=== PATIENT | female | born 1985 | race American Indian/Alaskan Native ===

== ENCOUNTER 2017-01-30 03:41 | Emergency (ER) | payer SELFPAY ==
[2017-01-30 06:07] LABS: Bacteria,Urine 1+ /HPF (Negative); Bilirubin,Urine NEG (Negative); Blood,Urine NEG (Negative); Ketones,Urine TR mg/dL (Negative); Leukocyte Esterase,Urine NEG (Negative); Mucus,Urine 3+ /HPF; Nitrite,Urine NEG (Negative); Urobilinogen,Urine < 2.0 mg/dL (<2.0)
--- NOTE | 2017-01-30 07:10 | Emergency Department Report ---
ED Female HPI - General Chief complaint: Abdominal Pain Stated complaint: ABD PAIN Time Seen by Provider: 01/30/17 07:09 Source: patient Mode of arrival: Ambulatory Limitations: No Limitations - History of Present Illness Initial comments: This is a 31-year-old female. She is previously unknown to me. She is 5. She presents to the ER complaining of pain with defecation, brown stool mixed with red blood, and abdominal cramping. She did not know that she was . There is no chest pain or shortness of breath. There are no irritative or obstructive urinary symptoms. Rectal pain increases with defecation. Abdominal cramping has no exacerbating or relieving factors. MD Complaint: vaginal bleeding -: Gradual Location: suprapubic Severity: mild Quality: cramping Consistency: intermittent Improves with: other (rest) Worsens with: other (defecation) Are you Now?: Yes Associated Symptoms: vaginal bleeding. denies: dysuria - Related Data Sexually active: Yes Previous Rx's Medication Instructions Recorded Last Taken Type Doxylamine/Pyridoxine HCl 1 each PO QHS PRN #30 tablet. 01/30/17 Unknown Rx [Linh Freitas 10-10 mg Tablet] Vit W-Ca,Fe,FA(<1 mg) 1 each PO QDAY #30 tablet 01/30/17 Unknown Rx [ Vitamins] Allergies Allergy/AdvReac Type Severity Reaction Status Date / Time Penicillins Allergy Swelling Verified 01/30/17 04:02 ED Review of Systems ROS: Stated complaint: ABD PAIN Other details as noted in HPI ED Past Medical Hx - Past Medical History Previous Medical History?: No - Surgical History Past Surgical History?: Yes Additional Surgical History: C SECTION X2 - Social History Smoking Status: Never Smoker Substance Use Type: Alcohol - Medications Home Medications: Home Medications Medication Instructions Recorded Confirmed Last Taken Type Doxylamine/Pyridoxine HCl 1 each PO QHS PRN #30 tablet. 01/30/17 Unknown Rx [Linh Freitas 10-10 mg Tablet] Vit W-Ca,Fe,FA(<1 mg) 1 each PO QDAY #30 tablet 01/30/17 Unknown Rx [ Vitamins] ED Physical Exam - General Limitations: No Limitations General appearance: alert, in no apparent distress - Head Head exam: Present: atraumatic, normocephalic - Eye Eye exam: Present: normal appearance, EOMI. Absent: nystagmus - ENT ENT exam: Present: normal exam, normal orophraynx, mucous membranes moist, normal external ear exam - Neck Neck exam: Present: normal inspection, full ROM. Absent: tenderness, meningismus - Respiratory Respiratory exam: Present: normal lung sounds bilaterally. Absent: respiratory distress, wheezes, rales, rhonchi, stridor, chest wall tenderness, accessory muscle use, decreased breath sounds, prolonged expiratory - Cardiovascular Cardiovascular Exam: Present: regular rate, normal rhythm, normal heart sounds. Absent: bradycardia, tachycardia, irregular rhythm, systolic murmur, diastolic murmur, rubs, gallop - GI/Abdominal GI/Abdominal exam: Present: soft, normal bowel sounds. Absent: distended, tenderness, guarding, rebound, rigid, pulsatile mass - Rectal Rectal exam: Present: normal inspection, normal rectal tone, heme (-) stool, other (escorted by ROBERTO Pagan) - External exam: Present: normal external exam Speculum exam: Present: normal speculum exam. Absent: vaginal bleeding Bi-manual exam: Present: normal bi-manual exam, other (escorted by ROBERTO Pagan) - Extremities Exam Extremities exam: Present: normal inspection, full ROM, normal capillary refill. Absent: tenderness, pedal edema, joint swelling, calf tenderness - Back Exam Back exam: Present: normal inspection, full ROM. Absent: tenderness, CVA tenderness (R), CVA tenderness (L), muscle spasm, paraspinal tenderness, vertebral tenderness - Neurological Exam Neurological exam: Present: alert, oriented X3, normal gait, other (Extraocular movements intact. Tongue midline. No facial droop. Facial sensation intact to light touch in the V1, V2, V3 distribution bilaterally. 5 and 5 strength in 4 extremities.. Sensation is intact to light touch in 4 extremities.). Absent : motor sensory deficit - Psychiatric Psychiatric exam: Present: normal affect, normal mood - Skin Skin exam: Present: warm, dry, intact, normal color. Absent: rash ED Course Vital Signs 01/30/17 01/30/17 04:02 06:35 Temperature 98.5 F Pulse Rate 69 Respiratory 18 16 Rate Blood Pressure 108/58 O2 Sat by Pulse 100 99 Oximetry - Reevaluation(s) Reevaluation #1: 01/30/17 10:40 differential diagnosis: Anal fissure, constipation, , urinary tract infection Assessment and plan: 31-year-old female with incidental abdominal pain, and probable anal fissure at 12:00. Ultrasound suggests intrauterine . She is afebrile with reassuring vital signs. Her abdominal exam is benign. Her gynecologic exam is benign. Her rectal exam is benign. The patient has been observed in the ER for a prolonged period of time without decompensation. She will be discharged at this time. Return precautions were extensively reviewed. She is given a printout of her ultrasound report to follow-up with an [facility] doctor. ED Medical Decision Making - Lab Data Result diagrams: 01/30/17 07:55 Vital Signs 01/30/17 01/30/17 04:02 06:35 Temperature 98.5 F Pulse Rate 69 Respiratory 18 16 Rate Blood Pressure 108/58 O2 Sat by Pulse 100 99 Oximetry Lab Results 01/30/17 01/30/17 01/30/17 Range/Units 05:25 07:55 07:55 WBC 12.4 H (4.5-11.0) K/mm3 RBC 3.94 (3.65-5.03) M/mm3 Hgb 11.8 (10.1-14.3) gm/dl Hct 35.6 (30.3-42.9) % MCV 91 (79-97) fl MCH 30 (28-32) pg MCHC 33 (30-34) % RDW 13.3 (13.2-15.2) % Plt Count 223 (140-440) K/mm3 HCG, Quant 6491 H (0-4) mIU/mL Urine Color Yellow (Yellow) Urine Turbidity Clear (Clear) Urine pH 5.0 (5.0-7.0) Ur Specific [place] 1.028 (1.003-1.030) Urine Protein 30 mg/dl (Negative) mg/dL Urine Glucose (UA) Neg (Negative) mg/dL Urine Ketones Tr (Negative) mg/dL Urine Blood Neg (Negative) Urine Nitrite Neg (Negative) Ur Reducing Substances Not Reportable Urine Bilirubin Neg (Negative) Urine Ictotest Not Reportable Urine Urobilinogen < 2.0 (<2.0) mg/dL Ur Leukocyte Esterase Neg (Negative) Urine WBC (Auto) 1.0 (0.0-6.0) /HPF Urine RBC (Auto) 4.0 (0.0-6.0) /HPF U Epithel Cells (Auto) 11.0 (0-13.0) /HPF Urine Bacteria (Auto) 1+ (Negative) /HPF Urine Mucus 3+ /HPF Urine HCG, Qual Positive A (Negative) Blood Type Antibody Screen 01/30/17 Range/Units 07:55 WBC (4.5-11.0) K/mm3 RBC (3.65-5.03) M/mm3 Hgb (10.1-14.3) gm/dl Hct (30.3-42.9) % MCV (79-97) fl MCH (28-32) pg MCHC (30-34) % RDW (13.2-15.2) % Plt Count (140-440) K/mm3 HCG, Quant (0-4) mIU/mL Urine Color (Yellow) Urine Turbidity (Clear) Urine pH (5.0-7.0) Ur Specific [place] (1.003-1.030) Urine Protein (Negative) mg/dL Urine Glucose (UA) (Negative) mg/dL Urine Ketones (Negative) mg/dL Urine Blood (Negative) Urine Nitrite (Negative) Ur Reducing Substances Urine Bilirubin (Negative) Urine Ictotest Urine Urobilinogen (<2.0) mg/dL Ur Leukocyte Esterase (Negative) Urine WBC (Auto) (0.0-6.0) /HPF Urine RBC (Auto) (0.0-6.0) /HPF U Epithel Cells (Auto) (0-13.0) /HPF Urine Bacteria (Auto) (Negative) /HPF Urine Mucus /HPF Urine HCG, Qual (Negative) Blood Type O POSITIVE Antibody Screen TNR - Radiology Data Radiology results: report reviewed, image reviewed Obstetrics ultrasound: Sonographic findings may represent an intrauterine gestational sac/early at 5 weeks and 6 days. Viability not confirmed. Ovarian cyst noted. minimal free pelvic fluid noted. - Differential Diagnosis , uti, anal fissure Critical care attestation.: If time is entered above; I have spent that time in minutes in the direct care of this critically ill patient, excluding procedure time. ED Disposition Clinical Impression: Disposition: DISCHARGED TO HOME OR SELFCARE Is pt being admited?: No Does the pt Need Aspirin: No Condition: Stable Instructions: (ED), Anal Fissure (ED) Additional Instructions: Drink plenty of water. Take the vitamins as directed. Follow up with any of the listed [facility] groups within the next week to initiate care. Rest and avoid heavy lifting. Do not engage in sexual activity until an [facility] doctor closer to do so. Eat plenty of green leafy vegetables. Eat plenty of fiber. Return to the ER right away with new pain, worsened pain, migration of pain, fevers or chills, intractable nausea or vomiting, inability to tolerate liquid feeds. Prescriptions: Doxylamine/Pyridoxine HCl [Linh Freitas 10-10 mg Tablet] 1 each PO QHS PRN #30 tablet. PRN Reason: Nausea Vit W-Ca,Fe,FA(<1 mg) [ Vitamins] 1 each PO QDAY #30 tablet Referrals: PRIMARY CARE, [Primary Care Provider] - 3-5 Days [facility] [Provider Group] - 3-5 Days [facility] [Provider Group] - 3-5 Days [facility] [Provider Group] - 3-5 Days
--- NOTE | 2017-01-30 08:12 | Ultrasound Report ---
ULTRASOUND OB LESS THAN 14 WEEKS - TRANSABDOMINAL AND TRANSVAGINAL INDICATION: , abdominal pain. Positive urine test. COMPARISON: None similar during this gestation. FINDINGS: Transabdominal and transvaginal pelvic sonography performed in this patient with LMP of 12/28/2016 and estimated menstrual age of 4 weeks and 5 days. A 10.9 x 6.2 x 6.6 cm uterus demonstrates a single cystic focus along the endometrium without evidence of a pole at this time. Questionable yolk sac visualization. Mean gestational sac diameter of 1.1 cm corresponds to 5 weeks and 6 days. Minimal pelvic free fluid. A 4.2 x 2.6 x 3.0 cm right ovary demonstrates a 3 x 2.7 cm cyst as an endovaginal image 20. Left ovary not visualized. CONCLUSION: 1. Sonographic findings may represent an intrauterine gestational sac/early estimated at 5 weeks and 6 days with EDC of 11/27/2016, though viability still not confirmed at this time. 2. Right ovarian cyst. Left ovary not visualized. Please also correlate clinically, with serial serum beta-hCG values and/or followup sonogram, as warranted. Thank you for the opportunity to participate in this patient's care.
[2017-01-30 08:27] LABS: Hematocrit 35.6 % (30.3-42.9); Hemoglobin 11.8 gm/dl (10.1-14.3); Mean Corpuscular HGB Conc 33 % (30-34); Mean Corpuscular Hemoglobin 30 pg (28-32); Mean Corpuscular Volume 91 fl (79-97); Platelet Count 223 K/mm3 (140-440); Red Blood Count 3.94 M/mm3 (3.65-5.03); Red Cell Distribution Width 13.3 % (13.2-15.2); White Blood Count 12.4 K/mm3 (4.5-11.0)
[2017-01-30 11:46] VITALS: BP 110/60
== END 2017-01-30 11:46 | disposition home or self-care (01) ==
LOC: ED 03:41
DX: O26.891 Other specified pregnancy related conditions, first trimester (principal); R10.9 Unspecified abdominal pain; K92.1 Melena; Z3A.01 Less than 8 weeks gestation of pregnancy
CPT/HCPCS: 36415; 76801; 76817; 81001; 81025; 82271; 84702; 85027; 86850; 86900; 86901; 99284